=== PATIENT | female | born 1970 | race Caucasian/White ===

== ENCOUNTER 2016-09-08 11:57 | Emergency (ER) | payer SELFPAY ==
[~2016-09-08] VITALS: Ht 170.2 cm; Wt 115.0 kg
[~2016-09-08 11:57] MED LIST: BUPR-79 PO; CETI10TA84 PO; FAMO20TA11 PO; FLUO40CA8 PO; HYDR-389 PO
[2016-09-08 12:01] VITALS: TEMP 36.6; Ht 170.2 cm; Wt 115.0 kg
[2016-09-08 12:07] VITALS: O2SAT 99
--- NOTE | 2016-09-08 12:18 | EMERGENCY ROOM VISIT NOTE ---
History Report prepared by Titiibharsh: Janae Howell Under the Supervision of: Dr. Dillon Sanchez M.D. First contact with patient: 12:07 Chief Complaint: FALL Stated Complaint: FALL/ BACK PAIN History of Present Illness The patient is a 45 year old female who presents to the Emergency Room with complaints of a fall that occurred about 1 hour prior to arrival. She was brought to the ED via EMS and is accompanied by her and daughter. She reports she was trying to untangle her dog's leash this morning, when she slipped on ice on outside stairs and fell, landing on her back. She was able to get back into her house with the help of her , but reports "every step was horrible". She felt dizzy after the fall. She rates her overall pain as a 9/ 10 and notes movement worsens her pain. She denies any neck pain, facial injury , head trauma or loss of consciousness. She also denies any chest pain, shortness of breath, abdominal pain or numbness or weakness in her extremities. The patient denies taking any daily blood thinners. Source of History: patient, spouse/significant other () Onset: 1 hour [employer] Position: other (global) Timing: resolved Associated Symptoms: + back pain, No LOC, No SOB, No abdominal pain, No chest pain, No neck pain, No numbness (numbness in extremities), No weakness ( weakness in extremities) Review of Systems See HPI for pertinent positives & negatives. A total of 10 systems reviewed and were otherwise negative. Past Medical & Surgical Medical Problems: (1) Chest pain (2) Chronic idiopathic urticaria (3) Depression Surgical Problems: (1) History of hysterectomy (2) S/P tubal ligation Old medical records were reviewed. Nurse's notes were reviewed and I agree with. Family History FHx: stroke Social History Smoking Status: Current Every Day Smoker Alcohol Use: occasionally Marital Status: Housing Status: lives with family Current/Historical Medications Scheduled Bupropion (Wellbutrin Sr), 150 MG PO QPM Cetirizine (Zyrtec), 10 MG PO BID Fluoxetine (Prozac), 40 MG PO QPM Magnesium (Magnesium 250 mg), 250 MG PO DAILY Riboflavin (Vitamin B-2), 100 MG PO DAILY Scheduled PRN Hydroxyzine Hcl (Atarax), 20 MG PO HS PRN for Itching Oxycodone Immediate Rel Tab (Roxicodone Ir), 1-2 TAB PO Q4H PRN for Severe Pain Allergies Coded Allergies: No Known Allergies (Unverified , 09/08/16) Physical Exam Vital Signs Date Time Temp Pulse Resp B/P Pulse Ox O2 Delivery O2 Flow Rate FiO2 09/08/16 15:43 74 14 135/85 99 09/08/16 14:53 85 20 77/60 94 Room Air 82/50 09/08/16 12:54 76 16 139/96 94 Room Air 09/08/16 12:07 99 Room Air 09/08/16 12:05 70 09/08/16 12:01 36.6 70 16 110/63 98 Room Air Physical Exam General: Mildly uncomfortable appearing middle aged female, well developed, well nourished, in no acute distress, breathing comfortably on room air. Normal speech HEENT: Normal cephalic atraumatic. Pupils are equal round and reactive to light. Sclerae anicteric. Extraocular movements are intact. Oropharynx is pink with moist mucous membranes. No swelling of the mouth lips or tongue. Neck: Supple with a midline trachea. No meningeal signs or stiffness, no JVD or bruits. No Stridor. Chest: Clear to auscultation bilaterally. No wheezes or rhonchi. No increased work of breathing. Heart: regular rate and rhythm. Abdomen: Soft nontender, nondistended without rebound guarding or rigidity. Extremities: Pain when she moves her right leg. Spine/Back. Lower lumbar spine tenderness to palpation, slightly to the right. Skin: Good turgor without rashes. Neurologic exam: Cranial nerves two through 12 are intact. Motor and sensation are intact and symmetrical throughout. Medical Decision & Procedures ER Provider Diagnostic Interpretation: These CT scans were reviewed and interpreted by the radiologist and reviewed by myself. ABDOMEN AND PELVIS CT WITH IV CONTRAST IMPRESSION: 1. Nondisplaced cortical fractures right transverse process of L1 and L2. 2. Small left ovarian cyst measuring approximately 1 cm. 3. Otherwise no acute process of the abdomen or pelvis. 4. 7 mm nodule right lung base with follow-up recommended per Fleischner criteria. Electronically signed by: Joshua De Jesus M.D. 09/08/2016 1:[address] IMPRESSION: 1. Nondisplaced fractures right transverse processes of L1 and L2. 2. Otherwise negative study Electronically signed by: Joshua De Jesus M.D. 09/08/2016 1:25 PM Laboratory Results 09/08/16 11:40 Red Blood Count 4.50, Mean Corpuscular Volume 90.9, Mean Corpuscular Hemoglobin 31.1, Mean Corpuscular Hemoglobin Concent 34.2, Mean Platelet Volume 9.5, Neutrophils (%) (Auto) 49.9, Lymphocytes (%) (Auto) 42.3, Monocytes (%) (Auto) 6.0, Eosinophils (%) (Auto) 1.2, Basophils (%) (Auto) 0.3, Neutrophils # (Auto) 4.97, Lymphocytes # (Auto) 4.21, Monocytes # (Auto) 0.60, Eosinophils # (Auto) 0.12, Basophils # (Auto) 0.03 09/08/16 11:40 Test 09/08/16 11:40 White Blood Count 9.96 K/uL (4.8-10.8) Red Blood Count 4.50 M/uL (4.2-5.4) Hemoglobin 14.0 g/dL (12.0-16.0) Hematocrit 40.9 % (37-47) Mean Corpuscular Volume 90.9 fL (80-100) Mean Corpuscular Hemoglobin 31.1 pg (25-34) Mean Corpuscular Hemoglobin Concent 34.2 g/dl (32-36) Platelet Count 291 K/uL (130-400) Mean Platelet Volume 9.5 fL (7.4-10.4) Neutrophils (%) (Auto) 49.9 % Lymphocytes (%) (Auto) 42.3 % Monocytes (%) (Auto) 6.0 % Eosinophils (%) (Auto) 1.2 % Basophils (%) (Auto) 0.3 % Neutrophils # (Auto) 4.97 K/uL (1.4-6.5) Lymphocytes # (Auto) 4.21 K/uL (1.2-3.4) Monocytes # (Auto) 0.60 K/uL (0.11-0.59) Eosinophils # (Auto) 0.12 K/uL (0-0.5) Basophils # (Auto) 0.03 K/uL (0-0.2) RDW Standard Deviation 46.6 fL (36.4-46.3) RDW Coefficient of Variation 14.1 % (11.5-14.5) Immature Granulocyte % (Auto) 0.3 % Immature Granulocyte # (Auto) 0.03 K/uL (0.00-0.02) Anion Gap 8.0 mmol/L (3-11) Est Creatinine Clear Calc Drug Dose 86.4 ml/min Estimated GFR () 71.2 Estimated GFR (Non- 61.4 BUN/Creatinine Ratio 10.6 (10-20) Calcium Level 8.4 mg/dl (8.5-10.1) Human Chorionic Gonadotropin, Qual NEG (NEG) Laboratory studies as stated above per my review. Medications Administered Medications (Trade) Dose Ordered Sig/Danny Route Start Time Stop Time Status Last Admin Dose Admin Ondansetron HCl (Zofran Inj) 4 mg NOW STAT IV 09/08/16 12:47 09/08/16 12:48 DC 09/08/16 12:54 4 MG Morphine Sulfate (MoRPHine SULFATE INJ) 4 mg NOW STAT IV 09/08/16 12:47 09/08/16 12:48 DC 09/08/16 12:54 4 MG Morphine Sulfate (MoRPHine SULFATE INJ) 4 mg NOW STAT IV 09/08/16 13:46 09/08/16 13:47 DC 09/08/16 13:53 4 MG Ketorolac Tromethamine (Toradol Inj) 30 mg NOW STAT IV 09/08/16 13:46 09/08/16 13:47 DC 09/08/16 13:59 30 MG Oxycodone HCl (Roxicodone Immediate Rel 5MG Home Pack) 1 homepack UD ONCE PO 09/08/16 14:45 09/08/16 14:46 DC 09/08/16 14:51 1 HOMEPACK ED Course 1212: Past medical records reviewed. The patient was evaluated in room C6, and a complete history and physical examination were performed. 1247: Morphine Sulfate 4 mg IV, Zofran 4 mg IV. 1340: I reevaluated the patient. She is still in pain, so I will put in medication orders. I discussed her CT scan results and she verbalized complete understanding and agreement. 1346: Toradol 30 mg IV, Morphine Sulfate 4 mg IV. 1435: I reevaluated the patient. She is feeling much better. I discussed her results and discharge instructions and she verbalized complete understanding and agreement. Medical Decision Differential Diagnoses: Lumbar spine fracture, internal injury, internal bleeding, musculoskeletal pain. This patient comes in as described above she fell and hit her back. She has significant back pain. She got dizzy in the ambulance did receive some fluids. IV access established and a CAT scan of her abdomen and pelvis as well as lumbar spine. she's had no evidence of any intra-abdominal bleeding or hemorrhage. she was found to have lumbar transverse process fractures this is a severe pain management issue. while she was here she is doing much better after receiving IV morphine and IV Toradol. When she went to stand up she did feel dizzy and was hypotensive. I think it was a combination of narcotics and pain she was given a liter of IV fluids and felt much better was normotensive and able to go home. I offered her admission for pain management she declined. I will have her rest and use ibuprofen for pain. For breakthrough pain, she can use OxyIR 5 mg, one or 2 pills every 4-6 hours as needed. She was warned that this could make her drowsy do not take for drinking, working. She felt should follow-up with her regular doctor 1-2 days for recheck. She is at the plan was discharged home with her family driving. Impression Primary Impression: Lumbar transverse process fracture Scribe Attestation The scribe's documentation has been prepared under my direction and personally reviewed by me in its entirety. I confirm that the note above accurately reflects all work, treatment, procedures, and medical decision making performed by me. Departure Information Dispostion Home / Self-Care Prescriptions Oxycodone Immediate Rel Tab (ROXICODONE IR) 5 Mg Tab 1-2 TAB PO Q4H Y for Severe Pain, #24 TAB Prov: Dillon Sanchez M.D. 09/08/16 Referrals Dipesh Cohen M.D. (PCP) Patient Instructions [facility] Additional Instructions Rest. Drink plenty of fluids. Use ibuprofen 400 mg every 6 hours, take with food. For more severe pain, use OxyIR 5 mg, one or 2 pills every 4-6 hours as needed. OxyIR may make you drowsy- do not take before drinking, driving, working. Do not take with any other sedating medication on narcotics. Return if increasing pain, numbness or weakness, change in bowel or bladder function, any new problems or concerns. Follow-up with your doctor in 1-2 days for recheck. May also follow up with spine surgeon Dr. Bailon or Dr. Veloz.
[2016-09-08 12:39] LABS: BASO % 0.3 %; BASO ABS # 0.03 K/uL (0-0.2); COMPLETE YES; EOS % 1.2 %; HEMATOCRIT 40.9 % (37-47); IG% 0.3 %; LYMPH % 42.3 %; LYMPH ABS # 4.21 K/uL (1.2-3.4); MEAN CELL VOLUME 90.9 fL (80-100); MEAN CORPUSCULAR HEMOGLOBIN 31.1 pg (25-34); MEAN CORPUSCULAR HGB CONC 34.2 g/dl (32-36); MEAN PLATELET VOLUME 9.5 fL (7.4-10.4); NEUT % 49.9 %; PLATELET COUNT 291 K/uL (130-400); WHITE BLOOD COUNT 9.96 K/uL (4.8-10.8)
[2016-09-08 12:43] LABS: PREG INTERNAL NEGATIVE QC NEG CLEAR BACKGROUND; PREG INTERNAL POSITIVE QC POS CONTROL LINE
[2016-09-08] MEDS ORDERED: OPTIRAY 320 IV PRN (12:45)
[2016-09-08 12:46] LABS: BUN/CREATININE RATIO 10.6 (10-20); CALCIUM 8.4 mg/dl (8.5-10.1); CREATININE 1.1 mg/dl (0.60-1.20); POTASSIUM 4.1 mmol/L (3.5-5.1)
[2016-09-08] MEDS ORDERED: ONDANSETRON INJ 2 MG/ML 2 ML VIAL IV STA (12:47)
[2016-09-08] MEDS ORDERED: MoRPHine SULFATE 4 MG/ML 1 ML CARP\\VIAL IV STA ×2 (12:47→13:46)
[2016-09-08] MEDS ORDERED: VITB2100 PO (12:52)
[2016-09-08] MEDS ORDERED: MAGN250T3 PO (12:52)
--- NOTE | 2016-09-08 13:26 | DIAGNOSTIC IMAGING REPORT ---
LUMBAR SPINE CT CT DOSE: HISTORY: Trauma. Pain. eval for trauma TECHNIQUE: Multiaxial CT images of the lumbar spine were performed and reformatted in the sagittal and coronal plane without the use of contrast. COMPARISON: None. FINDINGS: Nondisplaced fractures right transverse process L1 and L2. Vertebral body stature is normal throughout. There is no compression deformity. Posterior arch is intact at all levels. IMPRESSION: 1. Nondisplaced fractures right transverse processes of L1 and L2. 2. Otherwise negative study Electronically signed by: Joshua De Jesus M.D. 09/08/2016 1:25 PM Dictated Date/Time: 09/08/2016 1:23 PM
--- NOTE | 2016-09-08 13:30 | DIAGNOSTIC IMAGING REPORT ---
ABDOMEN AND PELVIS CT WITH IV CONTRAST CT DOSE: 3585.24 mGy.cm HISTORY: Trauma. Pain. eval for trauma TECHNIQUE: Multiaxial CT images of the abdomen and pelvis were performed following the use of intravenous contrast. COMPARISON STUDY: None. FINDINGS: Lung bases are clear. 7 mm nodular density right base. Liver spleen and pancreas are unremarkable. Kidneys are negative for hydronephrosis. Bowel pattern is nonobstructive. No evidence for free fluid within the abdomen or pelvis. Prior hysterectomy. Lateral midline. Inguinal regions are unremarkable. Nondisplaced cortical fractures right transverse process L1 and L2 1 cm left ovarian cyst. IMPRESSION: 1. Nondisplaced cortical fractures right transverse process of L1 and L2. 2. Small left ovarian cyst measuring approximately 1 cm. 3. Otherwise no acute process of the abdomen or pelvis. 4. 7 mm nodule right lung base with follow-up recommended per Fleischner criteria. Please refer to below summary of Fleischner criteria recommendations for follow-up of incidental CT nodules (Justin Miller, Guidelines for management of small pulmonary nodules detected on CT scans: A statement from the Fleischner Society, Radiology 237: [phone].) Low Risk Patient: Minimal or no smoking or other known risk factors for malignancy <=4 mm: No follow-up needed. >4-6 mm: Initial follow-up CT at 12 months; if unchanged, no further follow-up. >6-8 mm: Initial follow-up CT at 6-12 months then at 18-24 months if no change. >8 mm: Follow-up CT at \R\3, 9, 24 months, or PET and/or biopsy. High Risk Patient: History of smoking or other known risk factors <=4 mm: Follow-up at 12 months; if unchanged, no further follow-up. >4-6 mm: Initial follow-up CT at 6-12 months then at 18-24 months if no change. >6-8 mm: Initial follow-up CT at 3-6 months then at 9-12 and 24 months if no change. >8 mm: Same as low risk patient. Note: Nodule size measured as average of length and width. Ground glass or partly solid nodules may require longer follow-up to exclude indolent adenocarcinoma. Electronically signed by: Joshua De Jesus M.D. 09/08/2016 1:29 PM Dictated Date/Time: 09/08/2016 1:26 PM
[2016-09-08] MEDS ORDERED: KETOROLAC TROMETHAMINE 30 MG/ML VIAL IV STA (13:46)
[2016-09-08] MEDS ORDERED: OXYC1TAB3 PO (14:32)
[2016-09-08] MEDS ORDERED: OXYCODONE IR HOME PACK PO ONE (14:45)
[2016-09-08 15:43] VITALS: BP 135/85; PULSE 74; O2SAT 99
== END 2016-09-08 15:56 | disposition home or self-care (01) ==
LOC: EDBD 11:57 → C.EDC 11:59
DX: S32.019A Unspecified fracture of first lumbar vertebra, initial encounter for closed fracture (principal); S32.029A Unspecified fracture of second lumbar vertebra, initial encounter for closed fracture; W00.0XXA Fall on same level due to ice and snow, initial encounter; L50.1 Idiopathic urticaria; F32.9 Major depressive disorder, single episode, unspecified; F17.210 Nicotine dependence, cigarettes, uncomplicated; Z79.899 Other long term (current) drug therapy

== ENCOUNTER 2021-05-06 01:15 | Inpatient (IN) ==
[2021-05-06] MEDS ORDERED: KETOROLAC 30 MG/ML VIAL IV STA (01:43)
[2021-05-06] MEDS ORDERED: ALBUT/IPRATROP 3MG/0.5MG NEB 3 ML VIAL NEB ONE (01:43)
[2021-05-06] MEDS ORDERED: SODIUM CHLORIDE 0.9% 1000ML 1,000 ML IV ONE (01:43)
[2021-05-06] MEDS ORDERED: HYDROcodone/HOMATROPINE SYRUP 5MG/1.5MG 5ML UDP PO STA (01:43)
--- NOTE | 2021-05-06 01:47 | Emergency Department Note ---
Impression & Plan Multifocal pneumonia, Chest pain, Lactic acidosis ED Provider Note Name: RICHARD CASSIDY Age: 50 Sex: F Arrives Via: Walk-In Informant: Patient ED Provider: Fredrick Chavez MD Chief Complaint: shortness of breath Impression: Multifocal Pneumonia Chest Pain Lactic Acidosis Medical Decision Makin ry old female with 30 yr history smoking arrives with worsening shortness of breath, chest pain, primarily with exertion. Very tight lung sounds on examin ation. History concerning for COVID. CXR concerning for covid, Covid testing by [facility] and [facility] negative though. Dimer elevated thus CT PE which reveals multifocal pneumonia which is highly concerning covid as well. Blood cultures and Lactate ordered, which returned with moderately elevated Lactate. At this time Abx ordered, however after discussion with hospitalist he requested this be cancelled pending his evaluation. Patient remarkably with sats > 92% throughout on RA despite very poor lungs on CT and by exam. She does not appear overtly septic, though labs are concerning for trending that direction. Hospitalist in to evaluate further given findings and concerns. Prior Medical Record and Triage/Nursing Notes reviewed by Me Additional history obtained from chart Differentials:Reactive airway disease, pneumonia, pneumothorax, COPD, CHF, infections, cardiac ischemia, pulmonary embolism, musculoskeletal, gastrointestinal, as well as other pathologies. Vital Signs: reviewed and remarkable for no significant abnormalities Interventions: saline lock, decadron 10mg iv, duoneb 12ml 1 hr, nss bolus Labs:Reviewed and remarkable for elevated lactate Imaging:[facility] Radiologist interpretation reviewed by me: CT PE: No clear PE findings, multifocal infiltrates EKG:Per My Interpretation: Indication Chest Pain: NSR 86 bpm, qtc 418. No Ectopy. No Ischemia. Compared to EKG 09/03/15, no significant changes. Cardiac/Tele Monitoring: Cardiac Monitoring: An Order was placed for continuous cardiac monitoring. The monitor shows a rate of 80 with a normal sinus rhythm. Consults:Dr Shar Ovalle Hospitalist Plan: Disposition:Hospitalization. Condition: Good History of Present Illness:50 yr old female arrives for evaluation of illness. Patient notes that for the last 4 days worsening cough, congestion, fevers, chills, body aches, headache, back pains, fatigue, and weakness. Worsening this evening with diffuse chest tightness and unable to get her breath. No syncope, leg swelling, calf pain, abdominal pain, vomiting, urinary/bowel changes, neuro deficits, nor other symptoms. No medications taken for this. Exertion makes worse, rest makes better. No trauma, falls, injuries. No sick contacts. Did not get covid vaccine. ROS: See above HPI for pertinent positives & negatives. A total of 10 systems reviewed and were otherwise negative. Past Medical History:See Below Past Surgical History:See Below Family History:See Below Social History:See Below (30pack year smoker) Home Medications:See Below Allergies:NKDA Vitals:Blood Pressure: 124/81, Pulse 92, RR 18, T 3.4C, O2 97% on RA Physical Exam: GENERAL: Patient is tired/uncomfortable appearing and in mild distress. EYES: No scleral icterus, unremarkable pupils. ENT: Mucous membranes dry, no nasal congestion. NECK: No masses appreciated, nomeningismus, trachea is midline. RESPIRATORY: Tight lung sounds with mild wheezing CARDIOVASCULAR: Regular rate and rhythm.No murmurs, rubs, gallops appreciated. GASTROINTESTINAL: Abdomen soft, non-tender, no peritonitis.Bowel sounds positive.No masses appreciated. BACK: No midline tenderness, no CVA tenderness EXTREMITIES: Normal motion all extremities, no cyanosis, no edema. NEUROLOGIC: Alert and oriented, no acute motor or sensory deficits, no focal weakness, cranial nerves grossly intact. SKIN: No rash, no jaundice, no diaphoresis. PSYCH: Appropriate GCS: 15 ED Course: Times/Reassessments: feeling Ok though shob with exertion. Sats OK, agreeable to hospitalist evaluation Fredrick Chavez MD Past Med/Surg History Social History Smoking Status: Current every day smoker Feels Safe at Home: Yes Allergies Allergies Allergy/AdvReac Type Severity Reaction Status Date / Time No Known Allergies Allergy Unverified 05/06/21 03:10 Home Meds Home Medications Medication Instructions Recorded Confirmed bupropion HCl 150 mg tablet,12 hr 150 mg PO DAILY 05/06/21 05/06/21 sustained-release (Wellbutrin SR) cetirizine 10 mg tablet (Zyrtec) 10 mg PO DAILY 05/06/21 05/06/21 famotidine 20 mg tablet 20 mg PO HS 05/06/21 05/06/21 fluoxetine 40 mg capsule (Prozac) 60 mg PO DAILY 05/06/21 05/06/21 hydroxyzine HCl 10 mg tablet 20 mg PO HS PRN 05/06/21 05/06/21 montelukast 10 mg tablet 10 mg PO DAILY 05/06/21 05/06/21 (Singulair) omeprazole 20 mg capsule,delayed 20 mg PO DAILY 05/06/21 05/06/21 release Results & Data (ED) Vital Signs Vital Signs - 24 hr 05/06/21 01:22 05/06/21 02:04 05/06/21 03:35 Temperature 36.4 C L Temperature Source Temporal Artery Scan Pulse Rate 92 H 106 H Pulse Rate [Right Radial] 83 Pulse Rate from SpO2 Sensor 106 H Respiratory Rate 18 16 22 Respiratory Effort / Characteristics Non-Labored Spontaneous Non-Labored Spontaneous Respiratory Depth Normal Blood Pressure 124/81 139/104 H Blood Pressure Mean 95 115 Pulse Oximetry 97 96 93 Oxygen Delivery Method Room Air Room Air Sepsis Recent Fever Within 48 Hours No Sepsis New/Unexplained Change in Mental Status No Sepsis Action Taken by Nursing No Action Required Laboratory Data Result diagrams: 05/06/21 02:10 05/06/21 02:10 Lab Results 05/06/21 05/06/21 05/06/21 Range/Units 02:10 02:10 02:10 WBC 15.55 H (4.8-10.8) K/uL RBC 4.06 L (4.2-5.4) M/uL Hgb 12.5 (12.0-16.0) g/dL Hct 36.8 L (37-47) % MCV 90.6 (80-100) fL MCH 30.8 (25-34) pg MCHC 34.0 (32-36) g/dL RDW Std Deviation 48.7 H (36.4-46.3) fL RDW Coeff of Alan 14.7 H (11.5-14.5) % Plt Count 283 (130-400) K/uL MPV 9.3 (7.4-10.4) fL Immature Gran % (Auto) 0.3 % Neut % (Auto) 69.6 % Lymph % (Auto) 22.5 % [place] % (Auto) 5.9 % Eos % (Auto) 1.5 % Baso % (Auto) 0.2 % Neut # (Auto) 10.82 H (1.4-6.5) K/uL Lymph # (Auto) 3.50 H (1.2-3.4) K/uL [place] # (Auto) 0.92 H (0.11-0.59) K/uL Eos # (Auto) 0.24 (0-0.5) K/uL Baso # (Auto) 0.03 (0-0.2) K/uL Immature Gran # (Auto) 0.04 H (0.00-0.02) K/uL APTT (21.0-31.0) Seconds PTT Ratio D-Dimer 550 H* (0-500) ug/L FEU Sodium 136 (136-145) mmol/L Potassium 3.6 (3.5-5.1) mmol/L Chloride 107 (98-107) mmol/L Carbon Dioxide 23 (21-32) mmol/L Anion Gap 6.0 (3-11) BUN 14 (7-18) mg/dl Creatinine 0.93 (0.6-1.2) mg/dl Est Cr Clr Drug Dosing 96.8 ml/min Est GFR ( Amer) 84.2 ml/min Est GFR (Non-Af Amer) 72.7 ml/min BUN/Creatinine Ratio 14.7 (10-20) Glucose 113 H (70-99) mg/dl Lactate (0.4-2.0) mmol/L Calcium 8.7 (8.5-10.1) mg/dl Magnesium 1.9 (1.8-2.4) mg/dl Total Bilirubin 0.4 (0.2-1) mg/dl Direct Bilirubin < 0.1 (0-0.2) mg/dl AST 21 (15-37) U/L ALT 21 (12-78) U/L Alkaline Phosphatase 69 (45-117) U/L Troponin I < 0.015 (0-0.045) ng/ml Total Protein 7.0 (6.4-8.2) gm/dl Albumin 3.1 L (3.4-5.0) gm/dl Procalcitonin (0-0.5) ng/ml Adenovirus (PCR) (NotDetected) B. pertussis DNA (PCR) (NotDetected) B.parapertussis DNA PCR (NotDetected) C. pneumoniae DNA (PCR) (NotDetected) Coronavirus OC43 (PCR) (NotDetected) Coronavirus HKU1 (PCR) (NotDetected) Coronavirus 229E (PCR) (NotDetected) COVID-19 Eval Order SARS-CoV-2 (PCR) (Negative) Coronavirus NL63 (PCR) (NotDetected) Human Metapneumovir PCR (NotDetected) Influenza Type A (PCR) (NotDetected) Influenza Type B (PCR) (NotDetected) M. pneumoniae (PCR) (NotDetected) Parainfluenza 1 (PCR) (NotDetected) Parainfluenza 2 (PCR) (NotDetected) Parainfluenza 3 (PCR) (NotDetected) Parainfluenza 4 (PCR) (NotDetected) RSV (PCR) (NotDetected) Entero/Rhino (PCR) (NotDetected) 05/06/21 05/06/21 05/06/21 Range/Units 02:10 02:10 02:29 WBC (4.8-10.8) K/uL RBC (4.2-5.4) M/uL Hgb (12.0-16.0) g/dL Hct (37-47) % MCV (80-100) fL MCH (25-34) pg MCHC (32-36) g/dL RDW Std Deviation (36.4-46.3) fL RDW Coeff of Alan (11.5-14.5) % Plt Count (130-400) K/uL MPV (7.4-10.4) fL Immature Gran % (Auto) % Neut % (Auto) % Lymph % (Auto) % [place] % (Auto) % Eos % (Auto) % Baso % (Auto) % Neut # (Auto) (1.4-6.5) K/uL Lymph # (Auto) (1.2-3.4) K/uL [place] # (Auto) (0.11-0.59) K/uL Eos # (Auto) (0-0.5) K/uL Baso # (Auto) (0-0.2) K/uL Immature Gran # (Auto) (0.00-0.02) K/uL APTT 29.6 (21.0-31.0) Seconds PTT Ratio 1.1 D-Dimer (0-500) ug/L FEU Sodium (136-145) mmol/L Potassium (3.5-5.1) mmol/L Chloride (98-107) mmol/L Carbon Dioxide (21-32) mmol/L Anion Gap (3-11) BUN (7-18) mg/dl Creatinine (0.6-1.2) mg/dl Est Cr Clr Drug Dosing ml/min Est GFR ( Amer) ml/min Est GFR (Non-Af Amer) ml/min BUN/Creatinine Ratio (10-20) Glucose (70-99) mg/dl Lactate (0.4-2.0) mmol/L Calcium (8.5-10.1) mg/dl Magnesium (1.8-2.4) mg/dl Total Bilirubin (0.2-1) mg/dl Direct Bilirubin (0-0.2) mg/dl AST (15-37) U/L ALT (12-78) U/L Alkaline Phosphatase (45-117) U/L Troponin I (0-0.045) ng/ml Total Protein (6.4-8.2) gm/dl Albumin (3.4-5.0) gm/dl Procalcitonin 0.09 (0-0.5) ng/ml Adenovirus (PCR) (NotDetected) B. pertussis DNA (PCR) (NotDetected) B.parapertussis DNA PCR (NotDetected) C. pneumoniae DNA (PCR) (NotDetected) Coronavirus OC43 (PCR) (NotDetected) Coronavirus HKU1 (PCR) (NotDetected) Coronavirus 229E (PCR) (NotDetected) COVID-19 Eval Order Covid19 at [facility] SARS-CoV-2 (PCR) (Negative) Coronavirus NL63 (PCR) (NotDetected) Human Metapneumovir PCR (NotDetected) Influenza Type A (PCR) (NotDetected) Influenza Type B (PCR) (NotDetected) M. pneumoniae (PCR) (NotDetected) Parainfluenza 1 (PCR) (NotDetected) Parainfluenza 2 (PCR) (NotDetected) Parainfluenza 3 (PCR) (NotDetected) Parainfluenza 4 (PCR) (NotDetected) RSV (PCR) (NotDetected) Entero/Rhino (PCR) (NotDetected) 05/06/21 05/06/21 05/06/21 Range/Units 02:29 04:30 04:30 WBC (4.8-10.8) K/uL RBC (4.2-5.4) M/uL Hgb (12.0-16.0) g/dL Hct (37-47) % MCV (80-100) fL MCH (25-34) pg MCHC (32-36) g/dL RDW Std Deviation (36.4-46.3) fL RDW Coeff of Alan (11.5-14.5) % Plt Count (130-400) K/uL MPV (7.4-10.4) fL Immature Gran % (Auto) % Neut % (Auto) % Lymph % (Auto) % [place] % (Auto) % Eos % (Auto) % Baso % (Auto) % Neut # (Auto) (1.4-6.5) K/uL Lymph # (Auto) (1.2-3.4) K/uL [place] # (Auto) (0.11-0.59) K/uL Eos # (Auto) (0-0.5) K/uL Baso # (Auto) (0-0.2) K/uL Immature Gran # (Auto) (0.00-0.02) K/uL APTT (21.0-31.0) Seconds PTT Ratio D-Dimer (0-500) ug/L FEU Sodium (136-145) mmol/L Potassium (3.5-5.1) mmol/L Chloride (98-107) mmol/L Carbon Dioxide (21-32) mmol/L Anion Gap (3-11) BUN (7-18) mg/dl Creatinine (0.6-1.2) mg/dl Est Cr Clr Drug Dosing ml/min Est GFR ( Amer) ml/min Est GFR (Non-Af Amer) ml/min BUN/Creatinine Ratio (10-20) Glucose (70-99) mg/dl Lactate (0.4-2.0) mmol/L Calcium (8.5-10.1) mg/dl Magnesium (1.8-2.4) mg/dl Total Bilirubin (0.2-1) mg/dl Direct Bilirubin (0-0.2) mg/dl AST (15-37) U/L ALT (12-78) U/L Alkaline Phosphatase (45-117) U/L Troponin I (0-0.045) ng/ml Total Protein (6.4-8.2) gm/dl Albumin (3.4-5.0) gm/dl Procalcitonin (0-0.5) ng/ml Adenovirus (PCR) Not Detected (NotDetected) B. pertussis DNA (PCR) Not Detected (NotDetected) B.parapertussis DNA PCR Not Detected (NotDetected) C. pneumoniae DNA (PCR) Not Detected (NotDetected) Coronavirus OC43 (PCR) Not Detected (NotDetected) Coronavirus HKU1 (PCR) Not Detected (NotDetected) Coronavirus 229E (PCR) Not Detected (NotDetected) COVID-19 Eval Order RESPNP at [facility] SARS-CoV-2 (PCR) NEGATIVE Not Detected (Negative) Coronavirus NL63 (PCR) Not Detected (NotDetected) Human Metapneumovir PCR Not Detected (NotDetected) Influenza Type A (PCR) Not Detected (NotDetected) Influenza Type B (PCR) Not Detected (NotDetected) M. pneumoniae (PCR) Not Detected (NotDetected) Parainfluenza 1 (PCR) Not Detected (NotDetected) Parainfluenza 2 (PCR) Not Detected (NotDetected) Parainfluenza 3 (PCR) Not Detected (NotDetected) Parainfluenza 4 (PCR) Not Detected (NotDetected) RSV (PCR) Not Detected (NotDetected) Entero/Rhino (PCR) Not Detected (NotDetected) 05/06/21 Range/Units 05:49 WBC (4.8-10.8) K/uL RBC (4.2-5.4) M/uL Hgb (12.0-16.0) g/dL Hct (37-47) % MCV (80-100) fL MCH (25-34) pg MCHC (32-36) g/dL RDW Std Deviation (36.4-46.3) fL RDW Coeff of Alan (11.5-14.5) % Plt Count (130-400) K/uL MPV (7.4-10.4) fL Immature Gran % (Auto) % Neut % (Auto) % Lymph % (Auto) % [place] % (Auto) % Eos % (Auto) % Baso % (Auto) % Neut # (Auto) (1.4-6.5) K/uL Lymph # (Auto) (1.2-3.4) K/uL [place] # (Auto) (0.11-0.59) K/uL Eos # (Auto) (0-0.5) K/uL Baso # (Auto) (0-0.2) K/uL Immature Gran # (Auto) (0.00-0.02) K/uL APTT (21.0-31.0) Seconds PTT Ratio D-Dimer (0-500) ug/L FEU Sodium (136-145) mmol/L Potassium (3.5-5.1) mmol/L Chloride (98-107) mmol/L Carbon Dioxide (21-32) mmol/L Anion Gap (3-11) BUN (7-18) mg/dl Creatinine (0.6-1.2) mg/dl Est Cr Clr Drug Dosing ml/min Est GFR ( Amer) ml/min Est GFR (Non-Af Amer) ml/min BUN/Creatinine Ratio (10-20) Glucose (70-99) mg/dl Lactate 2.5 H* (0.4-2.0) mmol/L Calcium (8.5-10.1) mg/dl Magnesium (1.8-2.4) mg/dl Total Bilirubin (0.2-1) mg/dl Direct Bilirubin (0-0.2) mg/dl AST (15-37) U/L ALT (12-78) U/L Alkaline Phosphatase (45-117) U/L Troponin I (0-0.045) ng/ml Total Protein (6.4-8.2) gm/dl Albumin (3.4-5.0) gm/dl Procalcitonin (0-0.5) ng/ml Adenovirus (PCR) (NotDetected) B. pertussis DNA (PCR) (NotDetected) B.parapertussis DNA PCR (NotDetected) C. pneumoniae DNA (PCR) (NotDetected) Coronavirus OC43 (PCR) (NotDetected) Coronavirus HKU1 (PCR) (NotDetected) Coronavirus 229E (PCR) (NotDetected) COVID-19 Eval Order SARS-CoV-2 (PCR) (Negative) Coronavirus NL63 (PCR) (NotDetected) Human Metapneumovir PCR (NotDetected) Influenza Type A (PCR) (NotDetected) Influenza Type B (PCR) (NotDetected) M. pneumoniae (PCR) (NotDetected) Parainfluenza 1 (PCR) (NotDetected) Parainfluenza 2 (PCR) (NotDetected) Parainfluenza 3 (PCR) (NotDetected) Parainfluenza 4 (PCR) (NotDetected) RSV (PCR) (NotDetected) Entero/Rhino (PCR) (NotDetected) Administered Medications Discontinued Medications Albuterol (Albut/Ipratrop 3mg/0.5mg Neb 3 Ml Vial) 12 ml NEB ONE ONE Stop: 05/06/21 01:44 Last Admin: 05/06/21 02:04 Dose: 12 ml Documented by: [id number] Dexamethasone Sodium Phosphate (DexamethasonePf 10 Mg/Ml Vial) 10 mg IV NOW ONE Stop: 05/06/21 04:15 Last Admin: 05/06/21 04:22 Dose: 10 mg Documented by: [id number] Hydrocodone Bit/Homatropine Methylb (Hydrocodone/Homatropine Syrup 5mg/1.5mg 5ml Udp) 5 ml PO NOW STA Stop: 05/06/21 01:44 Last Admin: 05/06/21 02:34 Dose: 5 ml Documented by: [id number] Sodium Chloride (Nss 1000ml) 1,000 mls @ 999 mls/hr IV .Q1H1M ONE Stop: 05/06/21 02:43 Last Infusion: 05/06/21 03:16 Dose: 0 mls/hr Documented by: [id number] Admin: 05/06/21 02:34 Dose: 999 mls/hr Documented by: [id number] Ioversol (Optiray 320 125ml) 120 ml IV ONCE ONE Stop: 05/06/21 03:07 Last Admin: 05/06/21 03:07 Dose: 120 ml Documented by: [id number] Ketorolac Tromethamine (Ketorolac 30 Mg/Ml Vial) 30 mg IV NOW STA Stop: 05/06/21 01:44 Last Admin: 05/06/21 02:34 Dose: 30 mg Documented by: [id number] Potassium Chloride (Potassium Chloride Crtab 20 Meq Tabcr) 40 meq PO NOW STA Stop: 05/06/21 05:23 Last Admin: 05/06/21 05:49 Dose: 40 meq Documented by: [id number] Discharge Plan Visit Data Chief Complaint: Cardiac Assessment Stated Complaint: HARD TO BREATHE,CHEST PAIN,DIZZINESS,TIRED ED Provider: Fredrick Chavez Discharge Problem: Multifocal pneumonia, Chest pain, Lactic acidosis Patient Disposition: Admitted As Inpatient Discharge Instructions Interventions: ED Discharge Assessment Last Done: 05/06/21 06:53 Forms Stand Alone Forms: [facility] [place] Prescriptions Prescriptions: No Action fluoxetine [Prozac] 40 mg Capsule 60 mg PO DAILY RF: 0 bupropion HCl [Wellbutrin SR] 150 mg Tablet Sustained-Release 12 Hr 150 mg PO DAILY RF: 0 cetirizine [Zyrtec] 10 mg Tablet 10 mg PO DAILY RF: 0 famotidine 20 mg tablet 20 mg PO HS RF: 0 omeprazole 20 mg capsule,delayed release(DR/EC) 20 mg PO DAILY RF: 0 montelukast [Singulair] 10 mg Tablet 10 mg PO DAILY RF: 0 hydroxyzine HCl 10 mg Tablet 20 mg PO HS PRN (Reason: Itching) RF: 0 Referrals Referrals: Dipesh Cohen MD [Primary Care Provider] - Discharge Problem: Chest pain Qualifiers: Chest pain type: unspecified Qualified Code(s): R07.9 - Chest pain, unspecified
[2021-05-06 02:35] LABS: Basophils # (auto) 0.03 K/uL (0-0.2); Basophils % (auto) 0.2 %; Eosinophils # (auto) 0.24 K/uL (0-0.5); Eosinophils % (auto) 1.5 %; Hematocrit (blood only) 36.8 % (37-47); Hemoglobin 12.5 g/dL (12.0-16.0); Immature Granulocytes # (auto) 0.04 K/uL (0.00-0.02); Immature Granulocytes % (auto) 0.3 %; Lymphocytes % (auto) 22.5 %; Mean Corpuscular Hemoglobin 30.8 pg (25-34); Mean Corpuscular Volume 90.6 fL (80-100); Mean Platelet Volume 9.3 fL (7.4-10.4); Monocytes # (auto) 0.92 K/uL (0.11-0.59); Monocytes % (auto) 5.9 %; Neutrophils # (auto) 10.82 K/uL (1.4-6.5); Neutrophils % (auto) 69.6 %; Platelet Count 283 K/uL (130-400); RDW Coefficient of Variation 14.7 % (11.5-14.5); RDW Standard Deviation 48.7 fL (36.4-46.3); Red Blood Count 4.06 M/uL (4.2-5.4); White Blood Count 15.55 K/uL (4.8-10.8)
[2021-05-06 02:47] LABS: D Dimer 550 ug/L FEU (0-500)
[2021-05-06 02:51] LABS: BUN Creatinine Ratio 14.7 (10-20); Blood Urea Nitrogen 14 mg/dl (7-18); Calcium 8.7 mg/dl (8.5-10.1); Carbon Dioxide 23 mmol/L (21-32); Chloride 107 mmol/L (98-107); Creatinine Clr Calc Pharmacy 96.8 ml/min; Est GFR (African American) 84.2 ml/min; Est GFR (Non-African American) 72.7 ml/min; Glucose 113 mg/dl (70-99); Potassium 3.6 mmol/L (3.5-5.1); Sodium 136 mmol/L (136-145)
[2021-05-06 02:56] LABS: Troponin I < 0.015 ng/ml (0-0.045)
[2021-05-06] MEDS ORDERED: OPTIRAY 320 125ml IV ONE (03:06)
[2021-05-06] MEDS ORDERED: dexAMETHasone**PF** 10 MG/ML VIAL IV ONE (04:14)
[2021-05-06] MEDS ORDERED: POTASSIUM CHLORIDE CRTAB 20 MEQ TABCR PO STA (05:22)
[2021-05-06 05:29] LABS: Adenovirus PCR Not Detected (NotDetected); Bordetella parapertussis PCR Not Detected (NotDetected); Bordetella pertussis PCR Not Detected (NotDetected); Chlamydia pneumoniae PCR Not Detected (NotDetected); Coronavirus 229E PCR Not Detected (NotDetected); Coronavirus CoV-2 (COVID19)PCR Not Detected (NotDetected); Coronavirus HKU1 PCR Not Detected (NotDetected); Coronavirus NL63 PCR Not Detected (NotDetected); Coronavirus OC43PCR Not Detected (NotDetected); Human Metapneumovirus PCR Not Detected (NotDetected); Influenza A PCR Not Detected (NotDetected); Influenza B PCR Not Detected (NotDetected); Mycoplasma pneumoniae PCR Not Detected (NotDetected); Parainfluenza Virus 1 PCR Not Detected (NotDetected); Parainfluenza Virus 2 PCR Not Detected (NotDetected); Parainfluenza Virus 3 PCR Not Detected (NotDetected); Parainfluenza Virus 4 PCR Not Detected (NotDetected); Respiratory Syncytial VirusPCR Not Detected (NotDetected); Rhinovirus/Enterovirus PCR Not Detected (NotDetected)
[2021-05-06] MEDS ORDERED: PIPERACILL/TAZOBAC CONSULT ACTIVE PRN (05:32)
[2021-05-06] MEDS ORDERED: PIPERACILLIN/TAZOBACTAM 4.5 GM/120 ML BAG IV ONE (05:32)
[2021-05-06] MEDS ORDERED: VANCOMYCIN CONSULT ACTIVE PRN (05:32)
[2021-05-06] MEDS ORDERED: VANCOMYCIN HCL 2,250 MG in SODIUM CHLORIDE 0.9% 500 ML IV ONE (05:32)
[2021-05-06 05:41] LABS: Partial Thromboplastin Ratio 1.1; Partial Thromboplastin Time 29.6 Seconds (21.0-31.0)
[2021-05-06 05:43] LABS: Alanine Aminotransferase 21 U/L (12-78); Albumin Level 3.1 gm/dl (3.4-5.0); Alkaline Phosphatase 69 U/L (45-117); Aspartate Aminotransferase 21 U/L (15-37); Bilirubin Direct < 0.1 mg/dl (0-0.2); Bilirubin,Total 0.4 mg/dl (0.2-1); Magnesium 1.9 mg/dl (1.8-2.4)
--- NOTE | 2021-05-06 06:02 | History & Physical Report ---
Date of Service May 06, 2021 Assessment & Plan (1) Sepsis: Plan: Secondary to atypical pneumonia Possible COVID-19 pneumonia based on CAT scan initial read as per conversation tele radiologist Initial COVID-19 swabs negative Low back pain of 3 months duration likely arthritis mood disorder, at baseline Hyperglycemia rule out DM ongoing tobacco abuse Medical telemetry CS, Doxycycline COVID-19 precautions for now until repeat Covid swab after 24 hours Analgesia, follow-up outpatient back x-ray official read Check hemoglobin A1c Nicotine patch DVT prophylaxis. Lovenox subcu Full code Text document was generated using [employer] voice recognition software. It may contain grammatical or spelling errors. Kindly contact undersigned for clarification of any documentation item in question. History of Present Illness Chief Complaint: Cough, shortness of breath Primary Care Provider: Dipesh Cohen MD History obtained from patient and records. Medical history significant for mood disorder, ongoing tobacco abuse. Last confinement August 2015 for atypical chest pain attributed to GERD. Patient seen at PCPs office 3 days ago for low back pain of 3 months duration worse at the end of the day without numbness, tingling, weakness symptoms. No fever, no chills, no unusual weight loss. Patient prescribed NSAIDs for low back pain. Outpatient plain x-ray read still pending. Shortly after getting home, patient noted cough later productive of yellow sputum, congestion, fever, chills, body aches, headache, fatigue, weakness. No actual chest pain. Not sure about recent COVID-19 contacts. Patient has not received COVID-19 vaccination. Decadron administered at the ER. Medical History as above Surgical History : Hysterectomy, section, BTL Family History : Breast cancer, liver cirrhosis Personal/Social history : 1 pack daily, occasional EtOH intake, [employer] librarian employee Allergies Allergy/AdvReac Type Severity Reaction Status Date / Time No Known Allergies Allergy Unverified 05/06/21 03:10 Home Medications Medication Instructions Recorded Confirmed Type bupropion HCl 150 mg tablet,12 hr 150 mg PO DAILY 05/06/21 05/06/21 History sustained-release (Wellbutrin SR) cetirizine 10 mg tablet (Zyrtec) 10 mg PO DAILY 05/06/21 05/06/21 History famotidine 20 mg tablet 20 mg PO HS 05/06/21 05/06/21 History fluoxetine 40 mg capsule (Prozac) 60 mg PO DAILY 05/06/21 05/06/21 History hydroxyzine HCl 10 mg tablet 20 mg PO HS PRN 05/06/21 05/06/21 History montelukast 10 mg tablet 10 mg PO DAILY 05/06/21 05/06/21 History (Singulair) omeprazole 20 mg capsule,delayed 20 mg PO DAILY 05/06/21 05/06/21 History release Past Med/Surg History Social History Smoking Status: Current every day smoker Feels Safe at Home: Yes Review of Systems Review of Systems: As per HPI, all 10 systems reviewed, all other ROS negative Physical Exam Physical Exam: GENERAL: Comfortable, pleasant, obese, no respiratory distress SKIN: Normal color, warm HEENT: [place] palpebral conjunctivae, no ptosis, dry buccal mucosa NECK : Supple, short neck, no tenderness CHEST : Decreased breath sounds, no tenderness HEART : Tachycardic, no obvious murmurs ABDOMEN: Some distention, nontender EXTREMITIES : Minimal LE swelling, no LE tenderness, no other conspicuous deformities noted NEUROLOGIC : Coherent, no facial asymmetry, no other gross focality Results & Data Results & Data ([facility]) Vital Signs (Past 12 Hours) Vital Signs Temp Pulse Pulse Resp BP Pulse Ox 05/06/21 03:35 106 H 22 139/104 H 93 05/06/21 02:04 83 16 96 05/06/21 01:22 36.4 C L 92 H 18 124/81 97 Laboratory Results Laboratory Results WBC 15.55 K/uL (4.8-10.8) H 05/06/21 02:10 RBC 4.06 M/uL (4.2-5.4) L 05/06/21 02:10 Hgb 12.5 g/dL (12.0-16.0) 05/06/21 02:10 Hct 36.8 % (37-47) L 05/06/21 02:10 MCV 90.6 fL (80-100) 05/06/21 02:10 MCH 30.8 pg (25-34) 05/06/21 02:10 MCHC 34.0 g/dL (32-36) 05/06/21 02:10 RDW Std Deviation 48.7 fL (36.4-46.3) H 05/06/21 02:10 RDW Coeff of Alan 14.7 % (11.5-14.5) H 05/06/21 02:10 Plt Count 283 K/uL (130-400) 05/06/21 02:10 MPV 9.3 fL (7.4-10.4) 05/06/21 02:10 Immature Gran % (Auto) 0.3 % 05/06/21 02:10 Neut % (Auto) 69.6 % 05/06/21 02:10 Lymph % (Auto) 22.5 % 05/06/21 02:10 [place] % (Auto) 5.9 % 05/06/21 02:10 Eos % (Auto) 1.5 % 05/06/21 02:10 Baso % (Auto) 0.2 % 05/06/21 02:10 Neut # (Auto) 10.82 K/uL (1.4-6.5) H 05/06/21 02:10 Lymph # (Auto) 3.50 K/uL (1.2-3.4) H 05/06/21 02:10 [place] # (Auto) 0.92 K/uL (0.11-0.59) H 05/06/21 02:10 Eos # (Auto) 0.24 K/uL (0-0.5) 05/06/21 02:10 Baso # (Auto) 0.03 K/uL (0-0.2) 05/06/21 02:10 Immature Gran # (Auto) 0.04 K/uL (0.00-0.02) H 05/06/21 02:10 APTT 29.6 Seconds (21.0-31.0) 05/06/21 02:10 PTT Ratio 1.1 05/06/21 02:10 D-Dimer 550 ug/L FEU (0-500) H* 05/06/21 02:10 Sodium 136 mmol/L (136-145) 05/06/21 02:10 Potassium 3.6 mmol/L (3.5-5.1) 05/06/21 02:10 Chloride 107 mmol/L (98-107) 05/06/21 02:10 Carbon Dioxide 23 mmol/L (21-32) 05/06/21 02:10 Anion Gap 6.0 (3-11) 05/06/21 02:10 BUN 14 mg/dl (7-18) 05/06/21 02:10 Creatinine 0.93 mg/dl (0.6-1.2) 05/06/21 02:10 Est Cr Clr Drug Dosing 96.8 ml/min 05/06/21 02:10 Est GFR ( Amer) 84.2 ml/min 05/06/21 02:10 Est GFR (Non-Af Amer) 72.7 ml/min 05/06/21 02:10 BUN/Creatinine Ratio 14.7 (10-20) 05/06/21 02:10 Glucose 113 mg/dl (70-99) H 05/06/21 02:10 Calcium 8.7 mg/dl (8.5-10.1) 05/06/21 02:10 Magnesium 1.9 mg/dl (1.8-2.4) 05/06/21 02:10 Total Bilirubin 0.4 mg/dl (0.2-1) 05/06/21 02:10 Direct Bilirubin < 0.1 mg/dl (0-0.2) 05/06/21 02:10 AST 21 U/L (15-37) 05/06/21 02:10 ALT 21 U/L (12-78) 05/06/21 02:10 Alkaline Phosphatase 69 U/L (45-117) 05/06/21 02:10 Troponin I < 0.015 ng/ml (0-0.045) 05/06/21 02:10 Total Protein 7.0 gm/dl (6.4-8.2) 05/06/21 02:10 Albumin 3.1 gm/dl (3.4-5.0) L 05/06/21 02:10 Adenovirus (PCR) Not Detected (NotDetected) 05/06/21 04:30 B. pertussis DNA (PCR) Not Detected (NotDetected) 05/06/21 04:30 B.parapertussis DNA PCR Not Detected (NotDetected) 05/06/21 04:30 C. pneumoniae DNA (PCR) Not Detected (NotDetected) 05/06/21 04:30 Coronavirus OC43 (PCR) Not Detected (NotDetected) 05/06/21 04:30 Coronavirus HKU1 (PCR) Not Detected (NotDetected) 05/06/21 04:30 Coronavirus 229E (PCR) Not Detected (NotDetected) 05/06/21 04:30 COVID-19 Eval Order [facility]PNP at [facility] 05/06/21 04:30 SARS-CoV-2 (PCR) Not Detected (NotDetected) 05/06/21 04:30 Coronavirus NL63 (PCR) Not Detected (NotDetected) 05/06/21 04:30 Human Metapneumovir PCR Not Detected (NotDetected) 05/06/21 04:30 Influenza Type A (PCR) Not Detected (NotDetected) 05/06/21 04:30 Influenza Type B (PCR) Not Detected (NotDetected) 05/06/21 04:30 M. pneumoniae (PCR) Not Detected (NotDetected) 05/06/21 04:30 Parainfluenza 1 (PCR) Not Detected (NotDetected) 05/06/21 04:30 Parainfluenza 2 (PCR) Not Detected (NotDetected) 05/06/21 04:30 Parainfluenza 3 (PCR) Not Detected (NotDetected) 05/06/21 04:30 Parainfluenza 4 (PCR) Not Detected (NotDetected) 05/06/21 04:30 RSV (PCR) Not Detected (NotDetected) 05/06/21 04:30 Entero/Rhino (PCR) Not Detected (NotDetected) 05/06/21 04:[address] chest initial read: An apparent filling defect of a segmental branch of the right lower lobe is felt to most likelybe artifactual. No definitive pulmonaryembolus. Diffuse bilateral airspace opacities are most consistent with atypical infection. Prominent bilateral hilar and mediastinal lymphadenopathyis nonspecific but likelyreactive. The heart size iswithin normal limits. No fracture. Possible COVID-19 pneumonia as per conversation with teleradiologist (Dr. Salmon). EKG as per my interpretation : Rate 85, NSR, normal axis, no ischemia
[2021-05-06] MEDS ORDERED: DOXYCYCLINE HYCLATE 100 MG in DEXTROSE 5% 100 ML IV STA (06:06)
[2021-05-06] MEDS ORDERED: POTASSIUM CHLORIDE 40 MEQ in SODIUM CHLORIDE 0.9% 1000ML 1,000 ML IV ONE (06:11)
[2021-05-06] MEDS ORDERED: PROMETHAZINE HCL 12.5 MG in SODIUM CHLORIDE 0.9% 50 ML IV PRN (06:11)
[2021-05-06] MEDS ORDERED: MAGNESIUM SULFATE / D5W 1 GM/100 ML BAG IV ONE (06:11)
[2021-05-06 07:43] LABS: Estimated Average Glucose 123 mg/dl; Hemoglobin A1C 5.9 % (4.5-5.6)
[2021-05-06] MEDS ORDERED: CEFEPIME CONSULT ACTIVE PRN (08:11)
[2021-05-06] MEDS ORDERED: LEVALBUTEROL TARTRATE 15 GM HFA.AER.AD INH PRN (08:52)
[2021-05-06] MEDS ORDERED: MoRPHine SULFATE 4 MG/ML 1 ML CARP\\VIAL IV PRN (08:52)
[2021-05-06] MEDS ORDERED: hydrOXYzine HCl 10 MG TAB PO PRN (08:52)
--- NOTE | 2021-05-06 09:02 | CT Scan Report ---
CHEST CTA for PULMONARY ARTERIES CT DOSE: 727.96 mGy.cm HISTORY: Shortness of breath. COVID Like syndrome, sob, elevated Dimer TECHNIQUE: Multiaxial CT images of the chest were performed following the intravenous administration of contrast to evaluate the pulmonary arteries. Maximal intensity projection images were also obtaine d. A dose lowering technique was utilized adhering to the principles of ALARA. COMPARISON STUDY: None. FINDINGS: Limited views of the upper abdomen demonstrate normal liver, spleen, and adrenal glands. No rmal esophagus. There is mediastinal and bilateral hilar lymphadenopathy. This may be reactive. The h eart is normal in size. No pleural or pericardial effusions. No evidence for an aortic dissection. Mancia boptimal evaluation of the segmental and subsegmental pulmonary arteries due to the suboptimal opacif ication and mild respiratory motion artifact. However, no definite filling defects within the pulmona ry arteries to suggest a pulmonary embolus. No fractures within the visualized osseous structures. No pneumothorax. The central airways are patent. Moderate multifocal groundglass and consolidative airs pace opacities consistent with a viral pneumonia. IMPRESSION: 1. No evidence for pulmonary embolus. 2. Moderate multifocal airspace opacities consistent with a viral pneumonia. 3. Mediastinal and bilateral hilar lymphadenopathy. This is nonspecific but likely reactive to the pn eumonia. ACT 112: Negative or not required by law. Electronically signed by: Aris Olea M.D. 05/06/2021 9:01 AM
[2021-05-06] MEDS: LIDOCAINE 5% 1 PATCH TD SCH (09:05)
--- NOTE | 2021-05-06 09:29 | XRay Report ---
XR chest 1V portable INDICATION: MN ^chest pain , sob . TECHNIQUE: Single frontal radiograph of the chest was obtained. Comparison: Comparison is made to chest one view 09/02/2015 FINDINGS: No lines and tubes are seen. The cardiomediastinal silhouette is normal. There is prominence and myles stinctness of the vasculature. No evidence of pleural effusion or pneumothorax. IMPRESSION: Prominent and indistinct vasculature may represent mild pulmonary edema. ACT 112: Negative or not required by law. Electronically signed by: Lev Ballard M.D. 05/06/2021 9:28 AM
[2021-05-06] MEDS: CEFEPIME 2,000 MG in SYRINGE 0 ML IV SCH ×2 (09:44→20:03)
[2021-05-06] MEDS: traMADol HCL 50 MG TABLET PO PRN ×2 (09:44→21:21)
[2021-05-06] MEDS: guaiFENesin 600 MG TABCR PO SCH ×2 (10:09→20:04)
[2021-05-06] MEDS: MONTELUKAST SODIUM 10 MG TABLET PO SCH (10:09)
[2021-05-06] MEDS: NICOTINE 21 MG/24 HR TDSY TD SCH (10:09)
[2021-05-06] MEDS: FLUoxetine HCL 20 MG CAP PO SCH (10:09)
[2021-05-06] MEDS: CETIRIZINE HCL 10 MG TABLET PO SCH (10:09)
[2021-05-06] MEDS: ENOXAPARIN INJ 40 MG/0.4 ML SYR SQ SCH (10:09)
[2021-05-06] MEDS: buPROPion SR 150 MG TABCR PO SCH (10:09)
[2021-05-06] MEDS: PANTOprazole 40 MG TAB PO SCH (10:10)
[2021-05-06 13:43] LABS: Appearance Urine Clear (Clear); Bacteria Urine Automated 1+ (Negative); Bilirubin Urine Negative (Negative); Blood Urine 1+ (Negative); Cast Urine Automated 0 /lpf (0-5); Color Urine Yellow; Epithelial Cell Urine Auto >30 /lpf (0-5); Glucose Urine UA 2+ (Negative); Ketones Urine Trace (Negative); Leukocyte Esterase Urine Negative (Negative); Nitrite Urine Negative (Negative); Protein Urine Trace (Negative); Specific Gravity Urine 1.024 (1.000-1.030); Urobilinogen Urine Negative (Negative)
--- NOTE | 2021-05-06 13:54 | Hospitalist Progress Note ---
Date of Service May 06, 2021 Assessment & Plan (1) Multifocal pneumonia: Plan: 44 female with history of mood disorder, smoker, etc. presented with fever cough and chills x3 days Sepsis secondary to bilateral pneumonia, Likely bacterial Rule out Covid pneumonia Covid PCR: Negative Bio fire: Negative Procalcitonin: Negative D-dimer: 550 CT chest: Bilateral multifocal pneumonia Blood cultures: Pending Sputum culture: Pending Cover with cefepime plus doxycycline day #1 Incentive spirometry, flutter valve, Mucinex will discuss with Pulmonary service regarding possible initiation of Decadron + Remdesivir Mood disorder Continue Wellbutrin and Prozac Smoker Nicotine patch Disposition Pending Anticipate discharge to home medically stable Will need two-step exercise test plan of care discussed with patient in detail and at length all questions answered she is understanding, agreeable, comfortable with the plan of care Admission and Anticipated Discharge Date Admission Date: May 06, 2021 Subjective Follow-up for bilateral pneumonia, etc. Seen resting in bed, sitting up, comfortable, not in distress On room air States she still has some chest congestion, but no active shortness of breath Has dry cough No chest pain, palpitations, dizziness No abdominal pain, nausea vomiting, diarrhea No anosmia, appetite is good No other symptoms Review of Systems Review of Systems: all noted and negative except for above Physical Exam Physical Exam: General- oriented x 3, not in distress, speaks in sentences with no effort or accessory muscle use Head- atraumatic Eyes- PERRL, EOMI, anicteric ENT- oropharynx clear Neck- supple, no JVD, no adenopathy, no thyromegaly; carotids +2/2, no bruits appreciated Lungs-positive rhonchi bilateral, good air entry bilaterally Heart- normal rate, regular rhythm; no murmur, no gallop, no rub appreciated Abdomen- normal bowel sounds, nondistended, soft, nontender, no masses or hepatosplenomegaly Extremities- no pretibial edema, no calf tenderness; peripheral pulses intact Neuro- alert, oriented x 3; CN 2-12 grossly intact; motor 5/5 bilaterally;sensation 100% on all extremities; no other gross focal neurologic deficits Skin- warm & dry Results & Data Results & Data ([facility]) Vital Signs (Past 12 Hours) Vital Signs Temp Pulse Pulse Resp BP BP Pulse Ox 05/06/21 08:54 36.5 C 76 20 112/68 94 05/06/21 08:52 36.5 C 72 18 114/69 94 05/06/21 03:35 106 H 22 139/104 H 93 05/06/21 02:04 83 16 96 all noted and reviewed including below
[2021-05-06] MEDS ORDERED: AZITHROMYCIN 250 MG TAB PO ONE (13:56)
[2021-05-06] MEDS ORDERED: MAGNESIUM HYDROXIDE SUSP 30 ML UDC PO PRN (17:55)
[2021-05-06] MEDS ORDERED: MAGNESIUM HYDROXIDE SUSP 30 ML UDC PO ONE (17:55)
[2021-05-06] MEDS: FAMOTIDINE 20 MG TAB PO SCH (20:03)
[2021-05-06] MEDS ORDERED: DOXYCYCLINE HYCLATE 100 MG CAP PO SCH (21:00)
[2021-05-07] MEDS: traMADol HCL 50 MG TABLET PO PRN (02:33)
[2021-05-07 08:10] LABS: Basophils # (auto) 0.02 K/uL (0-0.2); Basophils % (auto) 0.1 %; Eosinophils # (auto) 0.06 K/uL (0-0.5); Eosinophils % (auto) 0.3 %; Hematocrit (blood only) 36.8 % (37-47); Hemoglobin 12.4 g/dL (12.0-16.0); Immature Granulocytes # (auto) 0.08 K/uL (0.00-0.02); Immature Granulocytes % (auto) 0.4 %; Lymphocytes # (auto) 3.36 K/uL (1.2-3.4); Lymphocytes % (auto) 17.9 %; Mean Corpuscular Hgb Conc 33.7 g/dL (32-36); Mean Platelet Volume 9.1 fL (7.4-10.4); Monocytes # (auto) 0.96 K/uL (0.11-0.59); Monocytes % (auto) 5.1 %; Neutrophils # (auto) 14.27 K/uL (1.4-6.5); Neutrophils % (auto) 76.2 %; Platelet Count 292 K/uL (130-400); RDW Coefficient of Variation 14.8 % (11.5-14.5); RDW Standard Deviation 50.3 fL (36.4-46.3); White Blood Count 18.75 K/uL (4.8-10.8)
[2021-05-07] MEDS: CEFEPIME 2,000 MG in SYRINGE 0 ML IV SCH ×2 (08:20→20:13)
[2021-05-07] MEDS: AZITHROMYCIN 250 MG TAB PO SCH (08:21)
[2021-05-07] MEDS: NICOTINE 21 MG/24 HR TDSY TD SCH (08:22)
[2021-05-07] MEDS: FLUoxetine HCL 20 MG CAP PO SCH (08:22)
[2021-05-07] MEDS: buPROPion SR 150 MG TABCR PO SCH (08:22)
[2021-05-07] MEDS: ENOXAPARIN INJ 40 MG/0.4 ML SYR SQ SCH (08:22)
[2021-05-07] MEDS: MONTELUKAST SODIUM 10 MG TABLET PO SCH (08:22)
[2021-05-07] MEDS: guaiFENesin 600 MG TABCR PO SCH ×2 (08:22→20:14)
[2021-05-07] MEDS: PANTOprazole 40 MG TAB PO SCH (08:22)
[2021-05-07] MEDS: LIDOCAINE 5% 1 PATCH TD SCH (08:23)
[2021-05-07] MEDS: CETIRIZINE HCL 10 MG TABLET PO SCH (08:23)
[2021-05-07] MEDS: ACETAMINOPHEN 325 MG TAB PO PRN ×2 (08:25→16:04)
[2021-05-07] MEDS ORDERED: XOPENEX/ATROVENT 1.25mg/0.5MG NEB COMBO NEB SCH (08:25)
[2021-05-07 09:11] LABS: Albumin Globulin Ratio 0.7 (0.9-2); Albumin Level 2.8 gm/dl (3.4-5.0); BUN Creatinine Ratio 14.4 (10-20); Bilirubin,Total 0.3 mg/dl (0.2-1); Calcium 8.9 mg/dl (8.5-10.1); Est GFR (Non-African American) 87.2 ml/min; Globulin 4.3 gm/dl (2.5-4.0); Potassium 4.3 mmol/L (3.5-5.1); Total Protein 7.1 gm/dl (6.4-8.2)
--- NOTE | 2021-05-07 10:11 | Hospitalist Progress Note ---
Date of Service May 07, 2021 Assessment & Plan (1) Multifocal pneumonia: Plan: 44 female with history of mood disorder, smoker, etc. presented with fever cough and chills x3 days Sepsis secondary to bilateral pneumonia, Likely bacterial Rule out Covid pneumonia Covid PCR: Negative Bio fire: Negative Procalcitonin: Negative D-dimer: 550 CT chest: Bilateral multifocal pneumonia Blood cultures: Pending Sputum culture: Pending Cover with cefepime plus doxycycline day #1 Incentive spirometry, flutter valve, Mucinex will discuss with Pulmonary service regarding possible initiation of Decadron + Remdesivir Mood disorder Continue Wellbutrin and Prozac Smoker Nicotine patch Disposition Pending Anticipate discharge to home medically stable Will need two-step exercise test plan of care discussed with patient in detail and at length all questions answered she is understanding, agreeable, comfortable with the plan of care Admission and Anticipated Discharge Date Admission Date: May 06, 2021 Results & Data Results & Data ([facility]) Vital Signs (Past 12 Hours) Vital Signs Temp Pulse Pulse Resp BP Pulse Ox 05/07/21 05:01 36.8 C 80 16 113/68 96 05/07/21 01:30 77 05/06/21 23:33 36.8 C 72 22 117/75 94
[2021-05-07] MEDS: LEVALBUTEROL 1.25MG/0.5ML NEB INH SCH ×3 (11:01→19:02)
[2021-05-07] MEDS: IPRATROPIUM BROMIDE NEB SOLN 0.02% 2.5 ML VIAL INH SCH ×3 (11:01→19:03)
--- NOTE | 2021-05-07 16:12 | Hospitalist Progress Note ---
Date of Service May 07, 2021 Assessment & Plan (1) Multifocal pneumonia: Plan: 44 female with history of mood disorder, smoker, etc. presented with fever cough and chills x3 days Sepsis secondary to bilateral pneumonia, Likely bacterial, could be atypical pneumonia unlikely Covid pneumonia Covid PCR: Negative Bio fire: Negative repeat Covid PCR: Negative Procalcitonin: Negative D-dimer: 550 CT chest: Bilateral multifocal pneumonia Blood cultures: Pending Sputum culture: Pending Cover with cefepime plus azithromycin day # 2 Incentive spirometry, flutter valve, Mucinex discussed with Dr. May, Covid Pneumonia unlikely given negative PCR x 2, absence of lymphopenia maintain isolation for now until discussion with Infection Control Committee Mood disorder Continue Wellbutrin and Prozac Smoker Nicotine patch Disposition Pending Anticipate discharge to home medically stable Will need two-step exercise test plan of care discussed with patient in detail and at length all questions answered she is understanding, agreeable, comfortable with the plan of care Admission and Anticipated Discharge Date Admission Date: May 06, 2021 Subjective ff up for pneumonia, etc seen resting in bed, comfortable states she feels somewhat improved today yesterday, 80% o2 sats after ambulation in the room, today 94% still has dry cough no dyspnea at rest chest congestion about the same no other symptoms Review of Systems Review of Systems: all noted and negative except for above Physical Exam Physical Exam: General- oriented x 3, not in distress, speaks in sentences with no effort or accessory muscle use Eyes- anicteric Neck- no JVD Lungs- (+) mild rhonchi at the bases no wheezing Heart- normal rate, regular rhythm; no murmurs Abdomen- normal bowel sounds, nondistended, soft, nontender Extremities- no pretibial edema, no calf tenderness Neuro- alert, oriented x 3; no gross focal neurologic deficits Skin- warm & dry Results & Data Results & Data ([facility]) Vital Signs (Past 12 Hours) Vital Signs Temp Pulse Resp BP Pulse Ox 05/07/21 13:13 81 16 96 05/07/21 12:30 36.5 C 75 18 114/78 98 05/07/21 05:01 36.8 C 80 16 113/68 96 all noted and reviewed including below
--- NOTE | 2021-05-07 19:29 | Electrocardiogram Report ---
Test Reason : Blood Pressure : / mmHG Vent. Rate : 086 BPM Atrial Rate : 086 BPM P-R Int : 150 ms QRS Dur : 070 ms QT Int : 350 ms P-R-T Axes : 017 050 049 degrees QTc Int : 418 ms Normal sinus rhythm Normal ECG When compared with ECG of 03-SEP-2015 07:41, No significant change Confirmed by Abdulkadir Watson ([id number]) on 05/07/2021 7:28:48 PM Referred By: REFERRED SELF Confirmed By:Abdulkadir Watson
[2021-05-07] MEDS: FAMOTIDINE 20 MG TAB PO SCH (20:14)
[2021-05-08] MEDS: LEVALBUTEROL 1.25MG/0.5ML NEB INH SCH ×4 (00:05→19:00)
[2021-05-08] MEDS: IPRATROPIUM BROMIDE NEB SOLN 0.02% 2.5 ML VIAL INH SCH ×4 (00:05→19:00)
[2021-05-08] MEDS: traMADol HCL 50 MG TABLET PO PRN (05:58)
[2021-05-08 06:54] LABS: Albumin Level 2.8 gm/dl (3.4-5.0); BUN Creatinine Ratio 16.9 (10-20); Creatinine Clr Calc Pharmacy 94.2 ml/min; Est GFR (African American) 81.1 ml/min; Est GFR (Non-African American) 69.9 ml/min; Potassium 4.5 mmol/L (3.5-5.1)
[2021-05-08 06:56] LABS: Albumin Globulin Ratio 0.7 (0.9-2); Bilirubin,Total 0.3 mg/dl (0.2-1); Globulin 4.1 gm/dl (2.5-4.0); Total Protein 6.9 gm/dl (6.4-8.2)
[2021-05-08] MEDS: guaiFENesin 600 MG TABCR PO SCH ×2 (07:51→20:06)
[2021-05-08] MEDS: CEFEPIME 2,000 MG in SYRINGE 0 ML IV SCH ×2 (07:51→20:11)
[2021-05-08] MEDS: MONTELUKAST SODIUM 10 MG TABLET PO SCH (07:51)
[2021-05-08] MEDS: FLUoxetine HCL 20 MG CAP PO SCH (07:52)
[2021-05-08] MEDS: AZITHROMYCIN 250 MG TAB PO SCH (07:52)
[2021-05-08] MEDS: CETIRIZINE HCL 10 MG TABLET PO SCH (07:53)
[2021-05-08] MEDS: buPROPion SR 150 MG TABCR PO SCH (07:53)
[2021-05-08] MEDS: PANTOprazole 40 MG TAB PO SCH (07:53)
[2021-05-08] MEDS: NICOTINE 21 MG/24 HR TDSY TD SCH (07:53)
[2021-05-08] MEDS: ENOXAPARIN INJ 40 MG/0.4 ML SYR SQ SCH (07:54)
[2021-05-08] MEDS: LIDOCAINE 5% 1 PATCH TD SCH (07:54)
[2021-05-08 09:41] LABS: Hematocrit (blood only) 37.7 % (37-47); Hemoglobin 12.6 g/dL (12.0-16.0); Mean Corpuscular Hgb Conc 33.4 g/dL (32-36); Mean Corpuscular Volume 92.6 fL (80-100); Mean Platelet Volume 9.2 fL (7.4-10.4); Platelet Count 358 K/uL (130-400); RDW Coefficient of Variation 15.1 % (11.5-14.5); Red Blood Count 4.07 M/uL (4.2-5.4); White Blood Count 11.34 K/uL (4.8-10.8)
[2021-05-08 10:13] LABS: Basophils # (auto) 0.02 K/uL (0-0.2); Basophils % (auto) 0.2 %; Eosinophils # (auto) 0.31 K/uL (0-0.5); Eosinophils % (auto) 2.7 %; Immature Granulocytes # (auto) 0.02 K/uL (0.00-0.02); Immature Granulocytes % (auto) 0.2 %; Lymphocytes # (auto) 4.86 K/uL (1.2-3.4); Lymphocytes % (auto) 42.9 %; Monocytes % (auto) 6.2 %; Neutrophils # (auto) 5.43 K/uL (1.4-6.5); Neutrophils % (auto) 47.8 %
--- NOTE | 2021-05-08 15:00 | Pulmonary Consultation ---
Date of Consultation May 08, 2021 Assessment & Plan (1) Multifocal pneumonia: (2) Shortness of breath: (3) Tobacco abuse counselin-year-old Female with past medical history of depression, anxiety and obesity presenting to the hospital due to shortness of breath, fevers and an abnormal CT chest. Abnormal CT chest: The findings are nonspecific, but likely infectious/inflammatory in nature. She is improving significantly with antibiotics. Recommend completing a course of 10 days of antibiotics total. We will repeat a CT chest in 8 weeks without contrast to evaluate the infiltrates. Findings may be related to smoking related interstitial lung disease such as DIP/RB-ILD. The findings may also represent acute hypersensitivity pneumonitis related to chemical exposures at work. Urine Legionella antigen and mycoplasma antibodies are pending. Shortness of breath: Secondary to the above. Improving substantially. No hypoxia seen. Tobacco abuse: I counseled her extensively on smoking cessation. She is interested in quitting. She would benefit from outpatient pulmonary function testing to establish a baseline pulmonary physiology. I will be happy to see her in the pulmonary clinic for follow-up. I think she is stable for discharge home at this time. I discussed the case with the patient's hospitalist, Dr. Rodriguez. History of Present Illness Reason for Consultation: Bilateral groundglass opacities Attending Physician: Estevan Rodriguez MD History of Present Illness 50-year-old female with a past medical history of morbid obesity, tobacco abuse, anxiety and depression presenting to the pulmonary clinic for increasing shortness of breath over the past 2 weeks. She notes that last week she had low-grade fevers and occasional cough. She also had moderate exertional dyspnea with minimal activity. 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 She has been using new chemicals. She denies any recent sick contacts. She has 1 dog at home. No birds. They have oil heating at home. She lives near [place]. No recent travel. She denies any prior history of lung disease. She does endorse smoking cigarettes for the past 30 years or so. She smokes approximately 1 pack/day. She is feeling much improved since being started antibiotics. She received Decadron in the ER for concerns of possible Covid pneumonia. She has undergone 3 Covid test which have been negative. Bio fire testing was also negative this admission. Urine Legionella and mycoplasma antibodies are pending. Her white count was initially elevated likely secondary to demargination from Decadron. Chest CTA completed 05/14/2021 was negative for pulmonary embolism, but moderate multifocal airspace opacities were seen. There is mediastinal and bilateral hilar adenopathy which was nonspecific. Allergies Allergy/AdvReac Type Severity Reaction Status Date / Time No Known Allergies Allergy Unverified 05/06/21 03:10 Home Medications Medication Instructions Recorded Confirmed Type bupropion HCl 150 mg tablet,12 hr 150 mg PO DAILY 05/06/21 05/06/21 History sustained-release (Wellbutrin SR) cetirizine 10 mg tablet (Zyrtec) 10 mg PO DAILY 05/06/21 05/06/21 History famotidine 20 mg tablet 20 mg PO HS 05/06/21 05/06/21 History fluoxetine 40 mg capsule (Prozac) 60 mg PO DAILY 05/06/21 05/06/21 History hydroxyzine HCl 10 mg tablet 20 mg PO HS PRN 05/06/21 05/06/21 History montelukast 10 mg tablet 10 mg PO DAILY 05/06/21 05/06/21 History (Singulair) omeprazole 20 mg capsule,delayed 20 mg PO DAILY 05/06/21 05/06/21 History release Patient History Medical History (Updated 05/08/21 @ 14:55 by Tobin Das MD) Shortness of breath Tobacco abuse counseling Social History Smoking Status: Never smoker Hx Alcohol Use: No Hx Substance Use: No Communication Ability: Effective Beliefs That Will Affect Care: None marital status: Current Living Situation: Spouse How many Children do You have: 4 Other Information That Helps Us Care for You: No Feels Safe at Home: Yes Safety Concerns: Feels Safe At This Time Assistive Devices: None Review of Systems Review of Systems: All systems reviewed & are unremarkable except as noted in HPI & below Physical Exam Physical Exam: Constitutional: Obese appearing female no apparent distress. Eyes: Pupils are equal round and reactive to light. Conjunctivae are normal. Anicteric sclera. Ears nose, mouth and throat: No obvious deformities. Neck: Trachea is midline. Visual inspection is normal. Respiratory: Clear to auscultation bilaterally. No use of accessory muscles. No significant clubbing noted. Cardiovascular: Regular rate and rhythm. No murmurs. No edema. Gastrointestinal: Normal bowel sounds, soft, nontender and nondistended. No hepatosplenomegaly noted. Musculoskeletal: No cyanosis. Patient is able to move all extremities. S trength is 5 out of 5 in the upper and lower extremities. Skin: No rashes, warm dry and intact. Neurologic: No obvious focal neurological deficits seen. Psychiatric: Alert and oriented x3 with a euthymic affect. Results & Data Results & Data ([facility]) Vital Signs (Past 12 Hours) Vital Signs Temp Pulse Pulse Resp BP Pulse Ox 05/08/21 13:13 78 16 97 05/08/21 11:53 98.2 F 74 16 107/75 97 05/08/21 07:50 98.1 F 83 20 103/69 97 05/08/21 07:19 90 16 98 05/08/21 04:40 97.9 F 72 20 114/78 96 Chest CTA, CBC and BMP reviewed in detail with the patient. PG Care Time/CCT Total # of Minutes Spent Total Time Spent with Patient: Total time spent is greater than 50% in coordination of care (as documented) at patient's floor/unit and/or counseling patient: Coding Level of Care Code 95288 Inpt Consult Level 5 Diagnoses Multifocal pneumonia J18.9 Shortness of breath R06.02 Tobacco abuse counseling Z71.6
--- NOTE | 2021-05-08 16:27 | Hospitalist Progress Note ---
Date of Service May 08, 2021 Assessment & Plan (1) Multifocal pneumonia: Plan: 44 female with history of mood disorder, smoker, etc. presented with fever cough and chills x3 days Sepsis secondary to bilateral pneumonia, Likely bacterial, could be atypical pneumonia unlikely Covid pneumonia Covid PCR: Negative Bio fire: Negative repeat Covid PCR: Negative Procalcitonin: Negative D-dimer: 550 CT chest: Bilateral multifocal pneumonia Blood cultures: Negative so far Sputum culture: Negative so far Currently on cefepime plus azithromycin day # 3 Incentive spirometry, flutter valve, Mucinex Patient improving clinically overall Discussed with pulmonary service Agree with above management Possible component of chemical pneumonitis secondary to exposure to cleaning agents Mood disorder Continue Wellbutrin and Prozac Smoker Nicotine patch Disposition Anticipate discharge home tomorrow when medically stable Will need two-step exercise test plan of care discussed with patient and his [place] over the phone in detail and at length all questions answered They are understanding, agreeable, comfortable with the plan of care Admission and Anticipated Discharge Date Admission Date: May 06, 2021 Subjective Follow-up for bilateral pneumonia, etc. Seen sitting up in bed, comfortable, not in distress Good spirits States she continues to feel improved overall Breathing is improving Chest congestion also improving, less cough Able to expectorate scant yellow phlegm No chest pain Appetite is good No abdominal pain, nausea vomiting, fevers or chills No chest pain, potatoes, dizziness No other symptoms Review of Systems Constitutional: all noted and negative except for above Physical Exam Physical Exam: General- oriented x 3, not in distress, speaks in sentences with no effort or accessory muscle use Eyes- anicteric Neck- no JVD Lungs-positive mild rhonchi at the bases, no wheezing, good air entry bilaterally Heart- normal rate, regular rhythm; no murmurs Abdomen- normal bowel sounds, nondistended, soft, nontender Extremities- no pretibial edema, no calf tenderness Neuro- alert, oriented x 3; no gross focal neurologic deficits Skin- warm & dry Results & Data Results & Data ([facility]) Vital Signs (Past 12 Hours) Vital Signs Temp Pulse Pulse Resp BP Pulse Ox 05/08/21 15:27 36.9 C 74 19 109/74 97 05/08/21 13:13 78 16 97 05/08/21 11:53 36.8 C 74 16 107/75 97 05/08/21 07:50 36.7 C 83 20 103/69 97 05/08/21 07:19 90 16 98 05/08/21 04:40 36.6 C 72 20 114/78 96 all noted and reviewed including below
[2021-05-08] MEDS: FAMOTIDINE 20 MG TAB PO SCH (20:07)
[2021-05-09] MEDS: IPRATROPIUM BROMIDE NEB SOLN 0.02% 2.5 ML VIAL INH SCH ×2 (00:10→07:44)
[2021-05-09] MEDS: LEVALBUTEROL 1.25MG/0.5ML NEB INH SCH ×2 (00:10→07:44)
[2021-05-09 06:32] LABS: Basophils # (auto) 0.05 K/uL (0-0.2); Basophils % (auto) 0.5 %; Eosinophils # (auto) 0.35 K/uL (0-0.5); Eosinophils % (auto) 3.4 %; Hematocrit (blood only) 39.1 % (37-47); Hemoglobin 13.1 g/dL (12.0-16.0); Immature Granulocytes # (auto) 0.04 K/uL (0.00-0.02); Immature Granulocytes % (auto) 0.4 %; Lymphocytes # (auto) 4.35 K/uL (1.2-3.4); Lymphocytes % (auto) 42.5 %; Mean Corpuscular Hemoglobin 30.8 pg (25-34); Mean Corpuscular Hgb Conc 33.5 g/dL (32-36); Mean Corpuscular Volume 91.8 fL (80-100); Mean Platelet Volume 8.9 fL (7.4-10.4); Monocytes # (auto) 0.69 K/uL (0.11-0.59); Monocytes % (auto) 6.7 %; Neutrophils # (auto) 4.76 K/uL (1.4-6.5); Neutrophils % (auto) 46.5 %; Platelet Count 326 K/uL (130-400); RDW Coefficient of Variation 14.6 % (11.5-14.5); RDW Standard Deviation 49.6 fL (36.4-46.3); Red Blood Count 4.26 M/uL (4.2-5.4); White Blood Count 10.24 K/uL (4.8-10.8)
[2021-05-09 07:11] LABS: Albumin Globulin Ratio 0.7 (0.9-2); Albumin Level 2.8 gm/dl (3.4-5.0); BUN Creatinine Ratio 17.4 (10-20); Bilirubin,Total 0.3 mg/dl (0.2-1); Calcium 9.2 mg/dl (8.5-10.1); Creatinine Clr Calc Pharmacy 88.5 ml/min; Est GFR (African American) 72.7 ml/min; Est GFR (Non-African American) 62.8 ml/min; Globulin 4.2 gm/dl (2.5-4.0); Potassium 4.5 mmol/L (3.5-5.1)
[2021-05-09] MEDS: guaiFENesin 600 MG TABCR PO SCH (09:03)
[2021-05-09] MEDS: NICOTINE 21 MG/24 HR TDSY TD SCH (09:03)
[2021-05-09] MEDS: CETIRIZINE HCL 10 MG TABLET PO SCH (09:04)
[2021-05-09] MEDS: LIDOCAINE 5% 1 PATCH TD SCH (09:04)
[2021-05-09] MEDS: PANTOprazole 40 MG TAB PO SCH (09:04)
[2021-05-09] MEDS: MONTELUKAST SODIUM 10 MG TABLET PO SCH (09:04)
[2021-05-09] MEDS: AZITHROMYCIN 250 MG TAB PO SCH (09:04)
[2021-05-09] MEDS: buPROPion SR 150 MG TABCR PO SCH (09:04)
[2021-05-09] MEDS: FLUoxetine HCL 20 MG CAP PO SCH (09:04)
[2021-05-09] MEDS: CEFEPIME 2,000 MG in SYRINGE 0 ML IV SCH (09:05)
[2021-05-09] MEDS: ENOXAPARIN INJ 40 MG/0.4 ML SYR SQ SCH (09:05)
--- NOTE | 2021-05-09 10:51 | Hospitalist Progress Note ---
Date of Service May 09, 2021 Assessment & Plan (1) Multifocal pneumonia: Plan: 44 female with history of mood disorder, smoker, etc. presented with fever cough and chills x3 days Sepsis secondary to bilateral pneumonia, Likely bacterial, could be atypical pneumonia unlikely Covid pneumonia Covid PCR: Negative Bio fire: Negative repeat Covid PCR: Negative Procalcitonin: Negative D-dimer: 550 CT chest: Bilateral multifocal pneumonia Blood cultures: Negative so far Sputum culture: Negative so far Currently on cefepime plus azithromycin day # 3 Incentive spirometry, flutter valve, Mucinex Patient improving clinically overall Discussed with pulmonary service Agree with above management Possible component of chemical pneumonitis secondary to exposure to cleaning agents 05/09/2021 Doing well Saturating 97% on room air Did well with two-step exercise stress Discharge home today Cefdinir x6 days Azithromycin times Mood disorder Continue Wellbutrin and Prozac Smoker Nicotine patch Disposition Discharge to home today Follow-up with PCP in 1 week plan of care discussed with patient in detail and at length all questions answered She is understanding, agreeable, comfortable with the plan of care Admission and Anticipated Discharge Date Admission Date: May 06, 2021 Results & Data Results & Data ([facility]) Vital Signs (Past 12 Hours) Vital Signs Temp Pulse Pulse Pulse Pulse Pulse Pulse 05/09/21 09:28 94 H 86 83 05/09/21 08:30 74 05/09/21 07:58 36.6 C 65 05/09/21 07:45 77 05/09/21 03:59 36.7 C 72 05/09/21 00:10 76 05/08/21 23:27 36.7 C 73 Resp Resp Resp Resp BP Pulse Ox Pulse Ox 05/09/21 09:28 18 18 18 94 05/09/21 08:30 05/09/21 07:58 16 123/77 97 05/09/21 07:45 18 95 05/09/21 03:59 18 104/66 97 05/09/21 00:10 18 95 05/08/21 23:27 18 102/64 97 Pulse Ox Pulse Ox 05/09/21 09:28 94 97 05/09/21 08:30 05/09/21 07:58 05/09/21 07:45 05/09/21 03:59 05/09/21 00:10 05/08/21 23:27
--- NOTE | 2021-05-09 11:12 | Hospitalist Progress Note ---
Date of Service May 09, 2021 Assessment & Plan (1) Multifocal pneumonia: Plan: 44 female with history of mood disorder, smoker, etc. presented with fever cough and chills x3 days Sepsis secondary to bilateral pneumonia, Likely bacterial, could be atypical pneumonia unlikely Covid pneumonia Covid PCR: Negative Bio fire: Negative repeat Covid PCR: Negative Procalcitonin: Negative D-dimer: 550 CT chest: Bilateral multifocal pneumonia Blood cultures: Negative so far Sputum culture: Negative so far Currently on cefepime plus azithromycin day # 3 Incentive spirometry, flutter valve, Mucinex Patient improving clinically overall Discussed with pulmonary service Agree with above management Possible component of chemical pneumonitis secondary to exposure to cleaning agents 05/09/2021 Doing well Saturating 97% on room air Did well with two-step exercise stress Discharge home today Cefdinir x6 days Azithromycin times Mood disorder Continue Wellbutrin and Prozac Smoker Nicotine patch Disposition Discharge to home today Follow-up with PCP in 1 week plan of care discussed with patient in detail and at length all questions answered She is understanding, agreeable, comfortable with the plan of care Admission and Anticipated Discharge Date Admission Date: May 06, 2021 Results & Data Results & Data ([facility]) Vital Signs (Past 12 Hours) Vital Signs Temp Pulse Pulse Pulse Pulse Pulse Pulse 05/09/21 11:01 36.7 C 81 05/09/21 09:28 94 H 86 83 05/09/21 08:30 74 05/09/21 07:58 36.6 C 65 05/09/21 07:45 77 05/09/21 03:59 36.7 C 72 05/09/21 00:10 76 05/08/21 23:27 36.7 C 73 Resp Resp Resp Resp BP Pulse Ox Pulse Ox 05/09/21 11:01 20 112/74 95 05/09/21 09:28 18 18 18 94 05/09/21 08:30 05/09/21 07:58 16 123/77 97 05/09/21 07:45 18 95 05/09/21 03:59 18 104/66 97 05/09/21 00:10 18 95 05/08/21 23:27 18 102/64 97 Pulse Ox Pulse Ox 05/09/21 11:01 05/09/21 09:28 94 97 05/09/21 08:30 05/09/21 07:58 05/09/21 07:45 05/09/21 03:59 05/09/21 00:10 05/08/21 23:27
[2021-05-11 00:07] LABS: Mycoplasma pneumoniae Ab, IgG <=0.90 (<=0.90); Mycoplasma pneumoniae Ab, IgM 97 U/mL (<770)
== END 2021-05-09 12:19 | disposition home or self-care (01) | DRG 871 ==
LOC: ED 01:15 → 2S 06:05